=== PATIENT | female | born 1950 | race Caucasian/White ===

== ENCOUNTER → 2018-05-22 | Outpatient (CLI) | payer MEDICARE, BC | END | disposition home or self-care (01) | LOC: SURG 12:51 | PROVIDERS: ATTEND Anesthesiology Pain Medicine | DX: G43.819 Other migraine, intractable, without status migrainosus (principal); G89.4 Chronic pain syndrome; F11.90 Opioid use, unspecified, uncomplicated; M19.90 Unspecified osteoarthritis, unspecified site; J45.909 Unspecified asthma, uncomplicated; G47.33 Obstructive sleep apnea (adult) (pediatric); Z86.2 Personal history of diseases of the blood and blood-forming organs and certain disorders involving the immune mechanism; Z79.899 Other long term (current) drug therapy | CPT/HCPCS: 99214 ==